=== PATIENT | female | born 1995 | race Caucasian/White ===

== ENCOUNTER 2022-10-01 13:43 | Emergency (ER) | payer OTHER ==
[~2022-10-01] VITALS: Ht 165.1 cm; Wt 81.6 kg
[~2022-10-01 13:43] MED LIST: BUTALB-ACETAMI1 EACH PO; MEDROLPACK PO; VALACYCLOVIR1000 MG PO
== END 2022-10-01 18:47 | disposition home or self-care (01) ==
LOC: ER 13:43
DX: J03.90 Acute tonsillitis, unspecified (principal); Z91.041 Radiographic dye allergy status; Z91.013 Allergy to seafood

== ENCOUNTER 2023-01-01 17:39 | Emergency (ER) | payer OTHER ==
[~2023-01-01] VITALS: Ht 165.1 cm; Wt 81.6 kg
== END 2023-01-01 19:35 | disposition home or self-care (01) ==
LOC: ER 17:40
DX: R05.9 Cough, unspecified (principal); Z91.013 Allergy to seafood; Z91.041 Radiographic dye allergy status; Z20.822 Contact with and (suspected) exposure to COVID-19

== ENCOUNTER 2025-03-11 19:06 | Emergency (ER) | payer OTHER ==
[~2025-03-11] VITALS: Ht 165.1 cm; Wt 77.1 kg
[2025-03-11] MEDS ORDERED: ALBUTEROL SULFATE 3 ML/2.5 MG AMPUL.NEB IH ONE (20:30)
[2025-03-11] MEDS ORDERED: RINGERS SOLUTION,LACTATED 1,000 ML IV ONE (20:30)
[2025-03-11 21:32] LABS: BASO % 0.1 % (0.1-1.2); EOS # 0.03 (0.04-0.54); EOS % 0.3 % (0.7-7.0); LYMPH # 1.79 (1.18-3.74); LYMPH % 18.0 % (19.3-53.1); MEAN PLATELET VOLUME 10.60 fl (9.4-12.4); MONO # 0.66 (0.24-0.82); MONO % 6.6 % (4.7-12.5); NEUT # 7.41 (1.56-6.13); NEUT % 74.6 % (34.0-71.1); RED CELL DISTRIBUTION WIDTH 12.7 % (11.6-14.4)
[2025-03-11 21:53] LABS: INR 1.03
[2025-03-11 22:08] LABS: ALT/SGPT 18.0 U/L (12-78); AST/SGOT 13.0 U/L (15-37); BILIRUBIN TOTAL 0.32 mg/dL (0.3-1.2); BUN CREA RATIO 23.0 (7.0-25.0); CREATININE SERUM 0.48 mg/dL (0.55-1.02); GFR 152.9; GLOBULINA 3.4 G/DL (2.4-3.5); GLUCOSE FASTING 106.0 mg/dL (65-100); OSMOLALITY SERUM 277.0 MOSM/KG (275-295)
[2025-03-11 22:14] LABS: URINE APPEARANCE Clear; URINE BILIRRUBIN Negative (NEGATIVE); URINE BLOOD Negative; URINE COLOR Yellow; URINE GLUCOSE Negative (NEGATIVE); URINE LEUKOCYTE Moderate; URINE NITRATE Negative; URINE PROTEIN Trace (NEGATIVE); URINE UROBILINOGEN 1.0 E.U./dl
[2025-03-11 22:18] LABS: URINE EPITHELIAL CELLS 111.8 uL (0.0-38.8); URINE RBC 51.1 uL (0.0-20.8); URINE WBC 170.1 uL (0.0-23.2)
[2025-03-11 22:32] LABS: URINE CAST 0.87 uL (0.0-1.40); URINE KETONE 80 (NEGATIVE)
[2025-03-12] MEDS ORDERED: MACROBID 100 M100 MG PO (00:24)
[2025-03-13] MEDS ORDERED: PEPCID AC10 MG PO (21:25)
== END 2025-03-12 01:51 | disposition home or self-care (01) ==
LOC: ER 19:07
PROVIDERS: Student in an Organized Health Care Education/Training Program
DX: O26.891 Other specified pregnancy related conditions, first trimester (principal); Z3A.12 12 weeks gestation of pregnancy; Z91.013 Allergy to seafood; Z91.041 Radiographic dye allergy status; J45.909 Unspecified asthma, uncomplicated; G51.0 Bell's palsy; N39.0 Urinary tract infection, site not specified; V43.52XA Car driver injured in collision with other type car in traffic accident, initial encounter; Y93.89 Activity, other specified; Y92.413 State road as the place of occurrence of the external cause

== ENCOUNTER 2025-03-13 19:56 | Emergency (ER) | payer OTHER ==
[~2025-03-13] VITALS: Ht 165.1 cm; Wt 76.7 kg
[~2025-03-13 19:56] MED LIST changes: +MACROBID 100 M100 MG PO
[2025-03-13] MEDS ORDERED: PEPCID AC10 MG PO (21:25)
[2025-03-13] MEDS ORDERED: ORPHENADRINE CITRATE 30 MG/ML AMPUL IM ONE (22:00)
[2025-03-13] MEDS ORDERED: ACETAMINOPHEN 500 MG GEL..CAP PO ONE ×2 (22:00→22:15)
[2025-03-13] MEDS ORDERED: DEXAMETHASONE SODIUM PHOSPHATE 4 MG/ML VIAL IM ONE (22:00)
[2025-03-13] MEDS ORDERED: KETOROLAC TROMETHAMINE 60 MG VIAL IM ONE (22:00)
[2025-03-13] MEDS ORDERED: 0.9 % SODIUM CHLORIDE 1,000 ML IV ONE (22:15)
[2025-03-13] MEDS ORDERED: FAMOTIDINE/PF 20 MG in 0.9 % SODIUM CHLORIDE 8 ML IV PUSH ONE (22:15)
[2025-03-13] MEDS ORDERED: ONDANSETRON HCL 4 MG in 0.9 % SODIUM CHLORIDE 50 ML IV ONE (22:15)
[2025-03-14 02:04] LABS: BASO % 0.1 % (0.1-1.2); EOS # 0.00 (0.04-0.54); EOS % 0.0 % (0.7-7.0); LYMPH # 0.29 (1.18-3.74); LYMPH % 3.4 % (19.3-53.1); MEAN PLATELET VOLUME 10.90 fl (9.4-12.4); MONO # 0.45 (0.24-0.82); MONO % 5.2 % (4.7-12.5); NEUT # 7.85 (1.56-6.13); NEUT % 90.8 % (34.0-71.1); RED CELL DISTRIBUTION WIDTH 12.9 % (11.6-14.4)
[2025-03-14 02:28] LABS: URINE APPEARANCE Cloudy; URINE BILIRRUBIN Small (NEGATIVE); URINE BLOOD Negative; URINE COLOR Dark Yellow; URINE GLUCOSE Negative (NEGATIVE); URINE LEUKOCYTE Trace; URINE NITRATE Negative; URINE PROTEIN Trace (NEGATIVE); URINE UROBILINOGEN 1.0 E.U./dl
[2025-03-14 02:31] LABS: URINE BACTERIA 2330.3 uL (0.0-1933); URINE EPITHELIAL CELLS 81.0 uL (0.0-38.8); URINE RBC 10.5 uL (0.0-20.8); URINE WBC 81.6 uL (0.0-23.2)
[2025-03-14 02:56] LABS: ALT/SGPT 23.0 U/L (12-78); AST/SGOT 18.0 U/L (15-37); BILIRUBIN TOTAL 0.8 mg/dL (0.3-1.2); BUN CREA RATIO 15.0 (7.0-25.0); CREATININE SERUM 0.48 mg/dL (0.55-1.02); GFR 152.9; GLOBULINA 3.0 G/DL (2.4-3.5); GLUCOSE FASTING 123.0 mg/dL (65-100); OSMOLALITY SERUM 277.0 MOSM/KG (275-295)
[2025-03-14 03:16] LABS: URINE CAST 0.14 uL (0.0-1.40); URINE CRYSTALS MANY /HPF; URINE KETONE 40 (NEGATIVE)
[2025-03-14] MEDS ORDERED: MACROBID 100 M100 MG PO (10:20)
[2025-03-14] MEDS ORDERED: ZOFRAN8 MG PO (10:20)
== END 2025-03-14 10:59 | disposition home or self-care (01) ==
LOC: ER 19:57
PROVIDERS: General Practice
DX: O23.31 Infections of other parts of urinary tract in pregnancy, first trimester (principal); R11.2 Nausea with vomiting, unspecified; N39.0 Urinary tract infection, site not specified; Z3A.12 12 weeks gestation of pregnancy; R10.20 Pelvic and perineal pain unspecified side; Z91.041 Radiographic dye allergy status; Z91.013 Allergy to seafood